=== PATIENT | male | born 1945 | race Caucasian/White ===

== ENCOUNTER 2020-09-16 08:29 | Emergency (ER) | payer MEDICARE, SELFPAY ==
--- NOTE | ~2020-09-16 | XR_ITS ---
EXAMINATION: XR FEMUR, RIGHT XR TIBIA AND FIBULA, RIGHT XR FOOT, RIGHT CLINICAL INFORMATION: History of fall, injury. Paraplegia. COMPARISON: None TECHNIQUE: Right femur, AP and lateral views Right tibia-fibula, AP and lateral views Right foot, 3 views FINDINGS: RIGHT FEMUR: Alignment is normal at the hip and knee. The femur is intact. The visualized right-sided pelvic bones are normal. Alignment is normal at the pubic symphysis and right sacroiliac joint. The right hip joint space is maintained. Soft tissues are unremarkable. RIGHT TIBIA AND FIBULA: The knee joint spaces are maintained. Old, healed fracture of the distal fibular diaphysis. Also, there is an acute, nondisplaced spiral fracture of the distal fibular metadiaphysis. No evidence of tibia fracture. At the ankle, the talar dome is well-positioned within the intact mortise. The ankle joint space is maintained. RIGHT FOOT: Bones of the right foot have normal alignment. The joint spaces are maintained. There appear to be acute, nondisplaced, transverse fractures of the proximal metaphyses of the second, third and fourth metatarsals. Small osseous fragments also noted at the medial aspect of the first tarsometatarsal joint. Alignment is normal along the Lisfranc joint. Small osteophytes are present at the mildly degenerated great toe metatarsophalangeal joint. XR/XR foot RT min 3V IMPRESSION: * Acute, nondisplaced spiral fracture of the distal fibular metadiaphysis. * Small fracture fragments are noted medial to the first tarsometatarsal joint. Also, there are nondisplaced, transverse fractures near the bases of the second, third and fourth metatarsals.
--- NOTE | ~2020-09-16 | XR_ITS ---
EXAMINATION: XR FEMUR, RIGHT XR TIBIA AND FIBULA, RIGHT XR FOOT, RIGHT CLINICAL INFORMATION: History of fall, injury. Paraplegia. COMPARISON: None TECHNIQUE: Right femur, AP and lateral views Right tibia-fibula, AP and lateral views Right foot, 3 views FINDINGS: RIGHT FEMUR: Alignment is normal at the hip and knee. The femur is intact. The visualized right-sided pelvic bones are normal. Alignment is normal at the pubic symphysis and right sacroiliac joint. The right hip joint space is maintained. Soft tissues are unremarkable. RIGHT TIBIA AND FIBULA: The knee joint spaces are maintained. Old, healed fracture of the distal fibular diaphysis. Also, there is an acute, nondisplaced spiral fracture of the distal fibular metadiaphysis. No evidence of tibia fracture. At the ankle, the talar dome is well-positioned within the intact mortise. The ankle joint space is maintained. RIGHT FOOT: Bones of the right foot have normal alignment. The joint spaces are maintained. There appear to be acute, nondisplaced, transverse fractures of the proximal metaphyses of the second, third and fourth metatarsals. Small osseous fragments also noted at the medial aspect of the first tarsometatarsal joint. Alignment is normal along the Lisfranc joint. Small osteophytes are present at the mildly degenerated great toe metatarsophalangeal joint. XR/XR femur RT 2V IMPRESSION: * Acute, nondisplaced spiral fracture of the distal fibular metadiaphysis. * Small fracture fragments are noted medial to the first tarsometatarsal joint. Also, there are nondisplaced, transverse fractures near the bases of the second, third and fourth metatarsals.
--- NOTE | ~2020-09-16 | XR_ITS ---
EXAMINATION: XR FEMUR, RIGHT XR TIBIA AND FIBULA, RIGHT XR FOOT, RIGHT CLINICAL INFORMATION: History of fall, injury. Paraplegia. COMPARISON: None TECHNIQUE: Right femur, AP and lateral views Right tibia-fibula, AP and lateral views Right foot, 3 views FINDINGS: RIGHT FEMUR: Alignment is normal at the hip and knee. The femur is intact. The visualized right-sided pelvic bones are normal. Alignment is normal at the pubic symphysis and right sacroiliac joint. The right hip joint space is maintained. Soft tissues are unremarkable. RIGHT TIBIA AND FIBULA: The knee joint spaces are maintained. Old, healed fracture of the distal fibular diaphysis. Also, there is an acute, nondisplaced spiral fracture of the distal fibular metadiaphysis. No evidence of tibia fracture. At the ankle, the talar dome is well-positioned within the intact mortise. The ankle joint space is maintained. RIGHT FOOT: Bones of the right foot have normal alignment. The joint spaces are maintained. There appear to be acute, nondisplaced, transverse fractures of the proximal metaphyses of the second, third and fourth metatarsals. Small osseous fragments also noted at the medial aspect of the first tarsometatarsal joint. Alignment is normal along the Lisfranc joint. Small osteophytes are present at the mildly degenerated great toe metatarsophalangeal joint. XR/XR tibia fibula RT 2V IMPRESSION: * Acute, nondisplaced spiral fracture of the distal fibular metadiaphysis. * Small fracture fragments are noted medial to the first tarsometatarsal joint. Also, there are nondisplaced, transverse fractures near the bases of the second, third and fourth metatarsals.
[2020-09-16 08:40] VITALS: BP 131/79; PULSE 99; RESP 14; TEMP 36.6; BMI 27.9
--- NOTE | 2020-09-16 08:53 | ED.FALL ---
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 Treated c Comstock tx. Problems c bladder and bowel control. Normal feeling above T4 but from T4 and down he has decreased sensation on the right side can walk with a walker and has an electric wheelchair, chronic duodenitis, Gilbert syndrome and asthma presenting to the ED via EMS after he reports he is using his walker to get into the shower when he must of stepped on something or tripped on something although he is unsure due to he does not have sensation to the right side then he fell on his buttocks. He reports that he does not usually have pain to the right side due to no sensation although knows he injured his right side. He reports he did not have any symptoms prior to the fall or after the fall. He denies being on any blood thinners. Denies head injury or loss of consciousness. Denies any other injuries complaints or concerns at this time. MD complaint: fall Onset (ago): minute(s) (Prior to arrival) Fall from: standing Fall witnessed: yes, by family () Place fall occurred: home (While using walker to get into shower) Loss of consciousness: none Prolonged down time: no Symptoms prior to fall: none Context: tripped/slipped Location of injury - extremities: right: thigh, knee, lower leg, ankle and foot Associated symptoms (after fall): denies Related Data Previous Rx's Medication Instructions Recorded diazepam [Valium] 2 mg PO TID PRN #15 tab 09/16/20 Allergies Allergy/AdvReac Type Severity Reaction Status Date / Time No Known Allergies Allergy Unverified 12/16/19 15:37 [No Known Allergies*] Review of Systems Review of Systems: Constitutional : No Fever, No Chills ENT/Mouth : No Ear Pain, No Hoarseness, No sore throat Eyes: No Eye Pain, No Swelling, No Redness, No Foreign Body Cardiovascular : No Chest Pain, No SOB Respiratory : No Cough, No Dyspnea Gastrointestinal : No Nausea, No Vomiting, No Diarrhea, No abdominal Pain Genitourinary : No Dysuria, No Hematuria Musculoskeletal : Positive right leg injury, No joint pain, No Myalgias, No Joint Swelling Skin : No Skin lacerations, No rash Neuro : No new Weakness, No new Numbness, No new Paresthesias, No Loss of Consciousness, No Dizziness, No Headache Psych : No Anxiety/Panic, No Depression Heme/Lymph: no easy bruising, no Lymphadenopathy Endocrine : No Polyuria, No Polydipsia Yes all other systems are reviewed and are negative [facility] Past Medical History Attestation statement: The following information was validated with the patient. Social History Social History Use of substances other than those prescribed or required for medical reasons: No Advance Directives: No Advance Directives Information Provided: No Physical Exam Vital Signs: Vital Signs: Last Vital Signs Temp 97.9 F 09/16/20 08:59 Pulse 80 09/16/20 08:59 Resp 14 09/16/20 08:59 BP 131/79 09/16/20 08:59 Pulse Ox 99 09/16/20 08:59 Body Mass Index 27.9 vital signs have been reviewed as normal and appeared to be correct. Blood pressure normal. Heart rate normal. Respiration rate normal. Temperature normal. Oxygen saturation normal. Appearance: Alert. Oriented X3. No acute distress. Head: Normal external exam. Normocephalic. Atraumatic. No Baron signs noted. No raccoon eyes noted Eyes: PERRLA. EOMI. Conjunctiva and sclera normal. Eyelids normal. ENT: Pharynx normal. Uvula midline. Moist mucous membranes. Neck: Normal inspection. Neck supple. FROM. No adenopathy. Thyroid Normal. No meningeal signs. No neck mass noted. CVS: Normal heart rate and rhythm. Heart sound normal. Pulses normal throughout. No murmurs/rales/gallops. Respiratory: No respiratory distress. Painless inspiration. Breath sounds normal. No wheezes/rales/rhonchi noted. Chest nontender. No accessory muscle usage noted or decreased air movement noted. Abdomen: Soft and nontender. Bowel sounds normal in all 4 quadrants. No distention noted. No organomegaly noted. No visible injury noted. Back: No signs of trauma. Full range of motion noted. Nontender. No rashes/lesion/induration/fluctuance or signs of infection noted. Skin: Skin warm and dry. Normal skin color. Normal skin turgor. No rashes/lesions/lacerations noted. Extremities: To right knee patient has an abrasion although patient does not have any sensation to the right leg therefore he denies any pain. To the right hip/knee/ankle/foot joint patient has full range of motion no obvious deformities or laxity noted. No signs of infection. No lower extremity edema. Otherwise all other Extremities exhibit normal range of motion and nontender. Neuro: Oriented X 3. Positive chronic right leg sensory deficit. No sensory deficit to left leg. Positive chronic motor weakness to left leg. Normal motor to right leg. Reflexes normal. No focal neuro deficits noted. Vascular: + radial pulses/+ 2 distal pedal pulses/+2 dorsalis pedis b/l. Normal cap refill. No cyanosis noted to upper extremity nails and lower extremity toes nails. 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 Treated c Comstock tx. Problems c bladder and bowel control. Normal feeling above T4 but from T4 and down he has decreased sensation on the right side can walk with a walker and has an electric wheelchair, chronic duodenitis, Gilbert syndrome and asthma presenting to the ED via EMS after he reports he is using his walker to get into the shower when he must of stepped on something or tripped on something although he is unsure due to he does not have sensation to the right side then he fell on his buttocks. He reports that he does not usually have pain to the right side due to no sensation although knows he injured his right side. Plan: Xrays of entire right leg. Then re-evaluate. Reevaluation(s) Reevaluation #1: - x-ray imaging revealed acute nondisplaced spiral fracture of the distal fibula metaphysis. Small fracture fragments are noted medial to the first tarsometatarsal joint. Also, there are nondisplaced, transverse fractures near the bases of the second, third and fourth metatarsals. - therefore I consulted with orthopedic RAVINDRA Fairchild who reported that the patient can be placed in a boot and follow-up out patient I explained to the patient and his at bedside and they understand agree with this plan. Will DC home with symptomatic treatment. Time: 10:11 MDM - Fall Medical Records Attestation: I reviewed the patient's medical records. Imaging Data Right femur/tibia/fibula/foot: Attestation: I personally reviewed and interpreted this imaging study as follows: Radiologist's impression: FINDINGS: RIGHT FEMUR: Alignment is normal at the hip and knee. The femur is intact. The visualized right-sided pelvic bones are normal. Alignment is normal at the pubic symphysis and right sacroiliac joint. The right hip joint space is maintained. Soft tissues are unremarkable. RIGHT TIBIA AND FIBULA: The knee joint spaces are maintained. Old, healed fracture of the distal fibular diaphysis. Also, there is an acute, nondisplaced spiral fracture of the distal fibular metadiaphysis. No evidence of tibia fracture. At the ankle, the talar dome is well-positioned within the intact mortise. The ankle joint space is maintained. RIGHT FOOT: Bones of the right foot have normal alignment. The joint spaces are maintained. There appear to be acute, nondisplaced, transverse fractures of the proximal metaphyses of the second, third and fourth metatarsals. Small osseous fragments also noted at the medial aspect of the first tarsometatarsal joint. Alignment is normal along the Lisfranc joint. Small osteophytes are present at the mildly degenerated great toe metatarsophalangeal joint. XR/XR femur RT 2V IMPRESSION: * Acute, nondisplaced spiral fracture of the distal fibular metadiaphysis. * Small fracture fragments are noted medial to the first tarsometatarsal joint. Also, there are nondisplaced, transverse fractures near the bases of the second, third and fourth metatarsals. Discharge Plan Discharge Clinical Impression: Closed fibular fracture, Foot fracture, right, Fall Patient Disposition: Home, Self-Care Instructions: Leg Fracture (ED), Foot Fracture in Adults (ED), Walking Boot (ED) Prescriptions: New diazepam [Valium] 2 mg tablet 2 mg PO TID PRN (Reason: pain/muscle spasm) Qty: 15 RF: 0 Referrals: Nader Santacruz MD [Physician] - 2 days Print Language: Uzbek
[2020-09-16 08:59] VITALS: BP 131/79; PULSE 80; RESP 14; TEMP 36.6; O2SAT 99
--- NOTE | 2020-09-16 09:04 | PC.NURSE ---
Pt alert, oriented, vss. Brought in to ED via ems d/t fall. Pt states R knee buckled causing him to fall. He reports that he did not hit his head, no dizziness, no loc. Pt states this has happened in the past. The pt is in xray at this time.
--- NOTE | 2020-09-16 11:39 | PC.NURSE ---
Plan for physical therapy eval to determine home care needs as requested by pt/family
--- NOTE | 2020-09-16 12:13 | MHC.CM.PN ---
Addendum entered by Kenna Gatica 09/16/20 12:50: Pt formally evaluated by PT who suggest acute vs STR rehab as pt cannot meet his ADL needs and will require assistance and more involved PT/OT services. Met with pt and spouse again to revise d/c plan. They are receptive to all three acute centers and selected 3 STR options. Referrals made: awaiting PT eval to upload - CM to follow for acceptance and transfer. Of note, pt received his 2 part COVID vax earlier this June Original Note: Received consult for assessment of d/c needs: Pt resides with spouse, is independent with care needs. He has a modified home with equipment to accommodate his diagnosis including walker and walk in shower . Pt is requesting VNA visits to assist with assessment and management of his fibular fx/walking boot - he would like [facility]. Referral made. F2F will be uploaded: spouse can transport home.
[2020-09-16 13:37] VITALS: BP 123/73; PULSE 89; RESP 15; O2SAT 98
[2020-09-16 13:59] LABS: COVID-19 Test Negative (Negative)
--- NOTE | 2020-09-16 15:45 | MHC.CM.ED ---
Pt has been accepted to [facility] in [place] and has accepted the offer. He will transfer via [facility] at 5:30pm this evening for a 6pm arrival time. Pt, spouse and ED MD and RN aware of plan.
--- NOTE | 2020-09-16 17:15 | PC.NURSE ---
Report given to the receiving nurse ZHEN Ruelas at [facility] in [place].
== END 2020-09-16 19:49 | disposition skilled nursing facility (03) ==
PROVIDERS: Physician Assistant Medical; Emergency Provider Emergency Medicine; PCP Internal Medicine
DX: S82.444A Nondisplaced spiral fracture of shaft of right fibula, initial encounter for closed fracture (principal); S92.311A Displaced fracture of first metatarsal bone, right foot, initial encounter for closed fracture; S92.324A Nondisplaced fracture of second metatarsal bone, right foot, initial encounter for closed fracture; S92.334A Nondisplaced fracture of third metatarsal bone, right foot, initial encounter for closed fracture; S92.344A Nondisplaced fracture of fourth metatarsal bone, right foot, initial encounter for closed fracture; G82.20 Paraplegia, unspecified; W01.0XXA Fall on same level from slipping, tripping and stumbling without subsequent striking against object, initial encounter; Y93.9 Activity, unspecified; Y92.002 Bathroom of unspecified non-institutional (private) residence as the place of occurrence of the external cause; Y99.9 Unspecified external cause status; Z20.822 Contact with and (suspected) exposure to COVID-19
CPT/HCPCS: 36415; 73552; 73590; 73630; 87635; 97163; 99284; 99285

== ENCOUNTER 2023-07-13 16:19 | Outpatient (REF) | payer MEDICARE, SELFPAY ==
[2023-07-13 16:29] LABS: Appearance Urine Clear; Color Urine Yellow; Glucose Urine UA Negative (Negative); Leukocyte Esterase Urine Moderate (2+) (Negative); Nitrite Urine Positive (Negative); PH 7.5 (5.0-9.0); UMIC TRIGGER UACC YES; Urine Blood Trace (Negative); Urine Ketones Negative (Negative); Urine Protein Negative (Neg-Trace)
[2023-07-13 16:34] LABS: Bacteria Urine 4+ (None Seen); Hyaline Casts Urine 0-2 /LPF (0-2); Squamous Epithelial Cell Urine 0-2 /HPF (0-2); UACC Culture Trigger YES; WBC Urine 21-50 /HPF (0-5)
== END 2023-07-13 16:20 | disposition home or self-care (01) ==
LOC: HO.HSH 16:19
PROVIDERS: Visit Provider Internal Medicine
DX: R30.0 Dysuria (principal); G83.81 Brown-Sequard syndrome
CPT/HCPCS: 81001; 87086; 87088; 87186

== ENCOUNTER 2023-09-10 12:48 | Outpatient (REF) | payer MEDICARE, SELFPAY ==
[2023-09-10 12:55] LABS: Appearance Urine Turbid; Color Urine Yellow; Glucose Urine UA Negative (Negative); Leukocyte Esterase Urine Large (3+) (Negative); Nitrite Urine Negative (Negative); PH 6.5 (5.0-9.0); UMIC TRIGGER UACC YES; Urine Blood Large (3+) (Negative); Urine Ketones Negative (Negative); Urine Protein Trace mg/dL (Neg-Trace)
[2023-09-10 13:09] LABS: Bacteria Urine 2+ (None Seen); Calcium Oxalate Crystals Urine Present; Hyaline Casts Urine 0-2 /LPF (0-2); Squamous Epithelial Cell Urine 0-2 /HPF (0-2); UACC Culture Trigger YES; WBC Clumps Urine Present; WBC Urine >50 /HPF (0-5)
== END 2023-09-10 12:49 | disposition home or self-care (01) ==
LOC: HO.HVNA 12:48
PROVIDERS: Visit Provider Urology
DX: R33.9 Retention of urine, unspecified (principal)
CPT/HCPCS: 81001; 87086; 87088; 87186

== ENCOUNTER 2023-09-25 14:10 | Outpatient (REF) | payer MEDICARE, SELFPAY ==
[2023-09-25 14:26] LABS: Appearance Urine Cloudy; Color Urine Yellow; Glucose Urine UA Negative (Negative); Leukocyte Esterase Urine Large (3+) (Negative); Nitrite Urine Positive (Negative); UMIC TRIGGER UA YES; Urine Blood Moderate (2+) (Negative); Urine Ketones Negative (Negative); Urine Protein Trace mg/dL (Neg-Trace)
[2023-09-25 14:41] LABS: Bacteria Urine 4+ (None Seen); Hyaline Casts Urine 0-2 /LPF (0-2); RBC Urine 0-2 /HPF (0-2); Squamous Epithelial Cell Urine 0-2 /HPF (0-2)
== END 2023-09-25 14:11 | disposition home or self-care (01) ==
LOC: HO.HVNA 14:10
PROVIDERS: Visit Provider Urology
DX: R10.9 Unspecified abdominal pain (principal)
CPT/HCPCS: 81001; 87086; 87088; 87186

== ENCOUNTER 2023-10-24 14:23 | Outpatient (REF) | payer MEDICARE, SELFPAY ==
[2023-10-24 14:37] LABS: Appearance Urine Turbid; Color Urine Yellow; Glucose Urine UA Negative (Negative); Leukocyte Esterase Urine Large (3+) (Negative); Nitrite Urine Positive (Negative); PH 6.5 (5.0-9.0); UMIC TRIGGER UA YES; Urine Blood Large (3+) (Negative); Urine Ketones Negative (Negative); Urine Protein Trace mg/dL (Neg-Trace)
[2023-10-24 14:52] LABS: Bacteria Urine 4+ (None Seen); RBC Urine >20 /HPF (0-2); Squamous Epithelial Cell Urine 0-2 /HPF (0-2); WBC Urine >50 /HPF (0-5)
== END 2023-10-24 14:24 | disposition home or self-care (01) ==
LOC: HO.HVNA 14:23
PROVIDERS: Visit Provider Urology
DX: R68.89 Other general symptoms and signs (principal)
CPT/HCPCS: 81001; 87086; 87088; 87186